=== PATIENT | female | born 2000 | race Caucasian/White ===

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

== ENCOUNTER 2021-07-19 22:16 | Emergency (ER) | payer SELFPAY ==
[2021-07-19 22:23] VITALS: BP 122/75
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
[2021-07-19] MEDS ORDERED: SULF1TAB38 PO (22:40)
== END 2021-07-19 22:50 | disposition home or self-care (01) ==
LOC: EDUNIT# 22:16 → ER 22:19
DX: L73.9 Follicular disorder, unspecified (principal); L01.02 Bockhart's impetigo
CPT/HCPCS: 99282

== ENCOUNTER 2021-09-11 15:48 | Emergency (ER) | payer SELFPAY ==
[~2021-09-11] VITALS: Ht 172.7 cm; Wt 63.5 kg
[~2021-09-11 15:48] MED LIST changes: +SULF1TAB38 PO
[2021-09-11 16:00] VITALS: BP 115/82
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
[2021-09-11] MEDS ORDERED: NAPR-1071 PO (16:14)
[2021-09-11] MEDS ORDERED: METH-732 PO (16:14)
[2021-09-11] MEDS ORDERED: ORPHENADRINE 60 MG/2 ML (NORFLEX) AMP (ED ONLY) IM ONE (16:15)
[2021-09-11] MEDS ORDERED: KETOROLAC 60 MG/2 ML VIAL IM ONE (16:15)
== END 2021-09-11 16:35 | disposition home or self-care (01) ==
LOC: EDUNIT# 15:48 → ER 15:50
DX: M43.6 Torticollis (principal)
CPT/HCPCS: 99284

== ENCOUNTER 2023-07-22 15:15 | Outpatient (CLI) | payer MEDICAID ==
[~2023-07-22 15:15] MED LIST changes: +METH-732 PO; +NAPR-1071 PO
[2023-07-22 15:23] VITALS: BP 105/65
[2023-07-22 15:57] LABS: BILIRUBIN,URINE 1+ (NEGATIVE); CLARITY,URINE CLEAR; COLOR,URINE YELLOW; GLUCOSE, URINE (UA) NEGATIVE (NEGATIVE); KETONES,URINE TRACE (NEGATIVE); NITRITE,URINE NEGATIVE (NEGATIVE); PH,URINE 5.5 (5-9); PROTEIN,URINE 1+ (NEGATIVE)
[2023-07-22 15:58] LABS: BACTERIA,URINE LARGE /HPF; LEUKOCYTE ESTERASE ,URINE NEGATIVE (NEGATIVE); RBC,URINE 0-2 /HPF; SQUAMOUS EPITHELIAL CELL,UR >50 /HPF
--- NOTE | 2023-07-23 08:22 | Physician Query-Final Dx ---
DIVYA,07/23/23 0822: Clinic Account Progress/Dx Physician Query: Please give diagnosis Please include # weeks gestation Date of Service Jul 22, 2023 at 15:15 DANIEL GALAN DO 07/24/23 0838: Clinic Account Progress/Dx DIAGNOSIS: Diagnosis 34 week IUP Irregular contractions DIVYA,NovJul 23, 2023 08:22 DANIEL GALAN DO Jul 24, 2023 08:38
== END 2023-07-22 16:20 | disposition home or self-care (01) ==
LOC: WSo 15:15 → LDRP 15:15 → WSo 16:20
PROVIDERS: ATTEND Obstetrics & Gynecology
DX: O36.8190 Decreased fetal movements, unspecified trimester, not applicable or unspecified (principal); Z3A.00 Weeks of gestation of pregnancy not specified
CPT/HCPCS: 81000; G0463; 99213

== ENCOUNTER → 2023-07-25 | Outpatient (CLI) | payer MEDICAID ==
--- NOTE | 2023-07-25 16:26 | Diagnostic Imaging Report ---
HISTORY: , 33 weeks 5 days COMPARISON: None TECHNIQUE: Transabdominal ultrasound of the gravid uterus. FINDINGS: There is a single live intrauterine gestation in cephalic presentation. The placenta is anterior without findings of previa shown. The amniotic fluid index measures 18.6 cm. heart rate measures 144 BPM. The biophysical profile score is 8 out of 8. IMPRESSION: 1. Single live intrauterine gestation with a biophysical profile score of 8 out of 8. Dictated by: Dictated on workstation # [id number]
== END ==
LOC: RAD 08:28
PROVIDERS: ATTEND Nurse Practitioner Women's Health
DX: Z34.03 Encounter for supervision of normal first pregnancy, third trimester (principal); Z3A.33 33 weeks gestation of pregnancy
CPT/HCPCS: 76819

== ENCOUNTER 2023-09-03 16:47 | Outpatient (CLI) | payer MEDICAID ==
[~2023-09-03] VITALS: Ht 172.7 cm; Wt 84.6 kg
[2023-09-03 16:50] VITALS: BP 129/89
[2023-09-03 17:32] LABS: CLARITY,URINE CLEAR; COLOR,URINE YELLOW
[2023-09-03 17:33] LABS: BACTERIA,URINE MODERATE /HPF; BILIRUBIN,URINE NEGATIVE (NEGATIVE); GLUCOSE, URINE (UA) NEGATIVE (NEGATIVE); KETONES,URINE NEGATIVE (NEGATIVE); LEUKOCYTE ESTERASE ,URINE NEGATIVE (NEGATIVE); NITRITE,URINE NEGATIVE (NEGATIVE); PROTEIN,URINE TRACE (NEGATIVE)
[2023-09-03] MEDS ORDERED: PROCHLORPERAZINE 10 MG TABLET PO NR (18:00)
[2023-09-03 18:15] LABS: BASOPHILS % (AUTO) 0 % (0-10); EOSINOPHILS # (AUTO) 0.1 10^3/uL (0.0-0.3); EOSINOPHILS % (AUTO) 1 % (0-10); HEMATOCRIT 33 % (35-52); HEMOGLOBIN 10.5 g/dL (11.5-16.0); LYMPHOCYTES # (AUTO) 1.6 10^3/uL (1.0-4.0); LYMPHOCYTES % (AUTO) 17 % (12-44); MEAN CORPUSCULAR HEMOGLOBIN 27 pg (25-34); MEAN CORPUSCULAR HGB CONC 32 g/dL (32-36); MEAN CORPUSCULAR VOLUME 83 fL (80-99); MEAN PLATELET VOLUME 11.1 fL (9.0-12.2); MONOCYTES # (AUTO) 1.1 10^3/uL (0.0-1.0); MONOCYTES % (AUTO) 12 % (0-12); NEUTROPHILS # (AUTO) 6.7 10^3/uL (1.8-7.8); NEUTROPHILS % (AUTO) 69 % (42-75); PLATELET COUNT 212 10^3/uL (130-400); WHITE BLOOD COUNT 9.7 10^3/uL (4.3-11.0)
[2023-09-03 18:16] LABS: ALBUMIN 3.4 GM/DL (3.2-4.5)
[2023-09-03 18:18] LABS: CALCIUM 9.3 MG/DL (8.5-10.1)
[2023-09-03 18:21] LABS: BILIRUBIN,TOTAL 0.4 MG/DL (0.1-1.0)
[2023-09-03 18:22] LABS: CREATININE SERUM 0.63 MG/DL (0.60-1.30)
[2023-09-03 18:27] LABS: POTASSIUM 3.9 MMOL/L (3.6-5.0)
[2023-09-03 19:00] VITALS: BP 125/75
--- NOTE | 2023-09-04 07:47 | Physician Query-Final Dx ---
09/04/23 0747: Clinic Account Progress/Dx Physician Query: Please give diagnosis Please include # weeks gestation Date of Service Sep 03, 2023 at 16:47 JOHANNY STEWART DO 09/04/23 1637: Clinic Account Progress/Dx DIAGNOSIS: Diagnosis IUP @39w3d Headaches PIH labs nml Compazine for Headache DC to home Keep next appt Labor precautions. DIVYASep 04, 2023 07:47 JOHANNY STEWART DO Sep 04, 2023 16:37
--- NOTE | 2023-09-04 16:35 | OB Triage Report ---
Standard Progress Note Progress Notes/Assess & Plan Date Seen by a Provider: Sep 03, 2023 Time Seen by a Provider: 18:00 Expected Date of Delivery: Sep 06, 2023 Gestational Age in Weeks: 39 Gestational Age in Days: 3 LMP/AMOS Comment: This 23yo G1 presents @ 39w3d with c/o lightheadedness and dizzy and PHILLIPS She denies LOF VB or CTXS FHR 130s reactive CTX irregular Progress/Assessment & Plan IUP @39w3d Headaches PIH labs nml Compazine for Headache DC to home Keep next appt Labor precautions. JOHANNY STEWART DO Sep 04, 2023 16:35
== END 2023-09-03 19:00 | disposition home or self-care (01) ==
LOC: WSo 16:47 → LDRP 16:49 → WSo 19:00
PROVIDERS: ATTEND Obstetrics & Gynecology
DX: O99.891 Other specified diseases and conditions complicating pregnancy (principal); R51.9 Headache, unspecified; Z3A.39 39 weeks gestation of pregnancy
CPT/HCPCS: 80053; 81000; 85025; G0463; 36415; 99213

== ENCOUNTER 2023-09-07 18:50 | Outpatient (CLI) | payer MEDICAID ==
[~2023-09-07] VITALS: Ht 172 cm; Wt 83.7 kg
[2023-09-07 19:15] VITALS: BP 117/74
[2023-09-07 19:38] LABS: BACTERIA,URINE MODERATE /HPF; BILIRUBIN,URINE NEGATIVE (NEGATIVE); CLARITY,URINE CLEAR; COLOR,URINE YELLOW; GLUCOSE, URINE (UA) 1+ (NEGATIVE); KETONES,URINE NEGATIVE (NEGATIVE); LEUKOCYTE ESTERASE ,URINE NEGATIVE (NEGATIVE); NITRITE,URINE NEGATIVE (NEGATIVE); PROTEIN,URINE NEGATIVE (NEGATIVE)
[2023-09-07] MEDS ORDERED: ACETAMINOPHEN 500 MG TABLET ONE (22:43)
[2023-09-07] MEDS ORDERED: ACETAMINOPHEN 500 MG TABLET PO ONE (22:44)
[2023-09-07] MEDS ORDERED: FERR-84 PO (22:49)
[2023-09-07] MEDS ORDERED: PREN1TAB19 PO (22:49)
[2023-09-07] MEDS ORDERED: ASCO500T71 PO (22:49)
--- NOTE | 2023-09-09 08:08 | Physician Query-Final Dx ---
DIVYA,09/09/23 0808: Clinic Account Progress/Dx Physician Query: Please give diagnosis Please include # weeks gestation Date of Service Sep 07, 2023 at 18:50 MARCO A VILLALOBOS DO 09/09/23 1229: Clinic Account Progress/Dx DIAGNOSIS: Diagnosis IUP at 40 weeks contractions DIVYA,NovSep 09, 2023 08:08 MARCO A VILLALOBOS DO Sep 09, 2023 12:29
== END 2023-09-07 23:00 | disposition home or self-care (01) ==
LOC: LDRP 18:50 → WSo 18:50
PROVIDERS: ATTEND Obstetrics & Gynecology
DX: O47.1 False labor at or after 37 completed weeks of gestation (principal); Z3A.40 40 weeks gestation of pregnancy
CPT/HCPCS: 81000; 87088; 99213

== ENCOUNTER 2023-09-09 19:24 | Outpatient (CLI) | payer MEDICAID ==
[~2023-09-09] VITALS: Ht 172.7 cm; Wt 82.9 kg
[~2023-09-09 19:24] MED LIST changes: +ASCO500T71 PO; +FERR-84 PO; +PREN1TAB19 PO
[2023-09-09 19:43] VITALS: BP 110/73
[2023-09-09 20:00] VITALS: BP 110/73
[2023-09-09 22:00] VITALS: BP 110/73
--- NOTE | 2023-09-10 08:04 | Physician Query-Final Dx ---
DIVYA,09/10/23 0804: Clinic Account Progress/Dx Physician Query: Please give diagnosis Please include # weeks gestation Date of Service Sep 09, 2023 at 19:24 JOHANNY STEWART DO 09/10/23 0908: Clinic Account Progress/Dx DIAGNOSIS: Diagnosis IUP @40w5d False labor DC to home Labor precautions kep next appt. DIVYA,NovSep 10, 2023 08:04 JOHANNY STEWART DO Sep 10, 2023 09:08
--- NOTE | 2023-09-10 09:08 | OB Triage Report ---
Standard Progress Note Progress Notes/Assess & Plan Date Seen by a Provider: Sep 09, 2023 Time Seen by a Provider: 21:45 Expected Date of Delivery: Sep 04, 2023 Gestational Age in Weeks: 40 Gestational Age in Days: 5 LMP/AMOS Comment: This 23yo G1 presents to L&D @40w5d with c/o CTXs denies LOF or VB FHR 140 reactive CVX 4/60/-3 per RN TOCOs Q5-10 with irritability no cervical chage in 2 hrs Progress/Assessment & Plan IUP @40w5d False labor DC to home Labor precautions kep next appt. JOHANNY STEWART DO Sep 10, 2023 09:08
[2023-09-11] MEDS ORDERED: IBUP-844 PO (08:36)
[2023-09-11] MEDS ORDERED: BENZ78AE5 TP (08:36)
[2023-09-11] MEDS ORDERED: ACET-93 PO (08:36)
[2023-09-11] MEDS ORDERED: DOCU100C37 PO (08:36)
[2023-09-11] MEDS ORDERED: DIBU30OI TOP (08:36)
== END 2023-09-09 22:00 | disposition home or self-care (01) ==
LOC: WSo 19:24 → LDRP 19:25 → WSo 22:00
PROVIDERS: ATTEND Obstetrics & Gynecology
DX: O47.1 False labor at or after 37 completed weeks of gestation (principal); Z3A.40 40 weeks gestation of pregnancy
CPT/HCPCS: 99213

== ENCOUNTER 2023-09-10 09:13 | Inpatient (IN) | payer MEDICAID ==
[~2023-09-10] VITALS: Ht 172.7 cm; Wt 83.5 kg
[2023-09-10] VITALS (37 sets, daily range): BP systolic 99–137; BP diastolic 53–80
[2023-09-10] MEDS ORDERED: MINERAL OIL 30 ML UDC TOP PRN (09:30)
[2023-09-10] MEDS ORDERED: LACTATED RINGERS 1,000 ML 500 ML IV PRN (09:30)
[2023-09-10] MEDS ORDERED: D5 LR 1,000 ML IV SOLN 1,000 ML IV SCH (09:30)
[2023-09-10 09:44] LABS: BASOPHILS # (AUTO) 0.1 10^3/uL (0.0-0.1); BASOPHILS % (AUTO) 1 % (0-10); EOSINOPHILS # (AUTO) 0.1 10^3/uL (0.0-0.3); EOSINOPHILS % (AUTO) 1 % (0-10); HEMATOCRIT 34 % (35-52); HEMOGLOBIN 11.1 g/dL (11.5-16.0); LYMPHOCYTES # (AUTO) 2.3 10^3/uL (1.0-4.0); LYMPHOCYTES % (AUTO) 19 % (12-44); MEAN CORPUSCULAR HEMOGLOBIN 26 pg (25-34); MEAN CORPUSCULAR HGB CONC 32 g/dL (32-36); MEAN CORPUSCULAR VOLUME 81 fL (80-99); MEAN PLATELET VOLUME 11.3 fL (9.0-12.2); MONOCYTES # (AUTO) 1.2 10^3/uL (0.0-1.0); MONOCYTES % (AUTO) 10 % (0-12); NEUTROPHILS # (AUTO) 8.5 10^3/uL (1.8-7.8); NEUTROPHILS % (AUTO) 70 % (42-75); PLATELET COUNT 217 10^3/uL (130-400); WHITE BLOOD COUNT 12.1 10^3/uL (4.3-11.0)
[2023-09-10] MEDS ORDERED: fentaNYL 2 mcg/ml BUPIVA 0.125 100 ML ONE (09:48)
[2023-09-10] MEDS ORDERED: LIDOCAINE PF 2% 5 ML VIAL ONE (10:14)
[2023-09-10] MEDS ORDERED: fentaNYL INJECTION 100 MCG/2 ML VIAL ONE (10:14)
[2023-09-10] MEDS ORDERED: ONDANSETRON INJECTION 4 MG/2 ML (SDV) IVP PRN (10:15)
[2023-09-10] MEDS: fentaNYL 2 mcg/ml BUPIVA 0.125 100 ML EPI SCH ×2 (10:23→19:33)
--- NOTE | 2023-09-10 10:27 | History & Physical-OB ---
OB - Chief Complaint & HPI Date/Time Date of Admission: Date of Admission: Sep 10, 2023 at 09:15 Date seen by a Provider: Sep 10, 2023 Time Seen by a Provider: 10:20 Chief Complaint/History OB-Reason for Admission/Chief: Onset of Labor Hx : 1 Expected Date of Delivery: Sep 04, 2023 Gestational Age in Weeks: 40 Gestational Age in Days: 6 Admission Nurse Assessment Rev: Yes History of Labs A pos Antibody neg GC neg GBS neg Allergies and Home Medications Allergies Coded Allergies: latex (Verified Allergy, Intermediate, 03/14/20) nystatin (Verified Allergy, Intermediate, HIVES, 03/14/20) lamotrigine (Verified Adverse Reaction, Unknown, MENTAL CHANGES , 03/14/20) Uncoded Allergies: WELBUTRIN (Adverse Reaction, Intermediate, MENTAL CHANGES , 03/14/20) Patient Home Medication List Home Medication List Reviewed: Yes Ascorbic Acid (Vitamin C) Unknown Strength Tab.chew, Unknown Dose PO DAILY, (Reported) Entered as Reported by: SAURAV AGUILAR on 09/07/232248 Ferrous Sulfate (Iron) Unknown Strength Tablet, Unknown Dose PO DAILY, (Reported) Entered as Reported by: SAURAV AGUILAR on 09/07/232248 Vit/Iron Fumarate/FA ( Vitamins Tablet) 28 Mg Iron-800 Mcg Tablet, 1 EACH PO DAILY, (Reported) Entered as Reported by: SAURAV AGUILAR on 09/07/232248 OB - History Hx of Present Care: Yes Ultrasounds: Normal mid trimester US Obstetrical Complications: None Medical Complications: None Patient Past Medical History nc Social History/Family History 2nd Hand Smoke Exposure: No Immunizations Tetanus Booster (TDap): Less than 5yrs OB - Admission Exam Physical Exam HEENT: NCAT Heart: Rhythm Normal Lungs: Clear Abdomen: Gravid Extremities: Normal Reflexes: Normal Cervical Dilatation: 4cm Effacement: 75% Station: -1 Membranes: Ruptured Amniotic Fluid: Clear Heart Rate: 130's Accelerations: Accelerations Present Decelerations: No Decelerations Short Term Variability: Present Collective Bargaining Specialist Variability: Average (6-25) Contractions on Admission: < 5 Minutes Apart Intensity: Firm Labs Laboratory Tests Test 09/10/23 09:41 Range/Units White Blood Count 12.1 H 4.3-11.0 10^3/uL Red Blood Count 4.23 3.80-5.11 10^6/uL Hemoglobin 11.1 L 11.5-16.0 g/dL Hematocrit 34 L 35-52 % Mean Corpuscular Volume 81 80-99 fL Mean Corpuscular Hemoglobin 26 25-34 pg Mean Corpuscular Hemoglobin Concent 32 32-36 g/dL Red Cell Distribution Width 14.9 H 10.0-14.5 % Platelet Count 217 130-400 10^3/uL Mean Platelet Volume 11.3 9.0-12.2 fL Immature Granulocyte % (Auto) 1 % Neutrophils (%) (Auto) 70 42-75 % Lymphocytes (%) (Auto) 19 12-44 % Monocytes (%) (Auto) 10 0-12 % Eosinophils (%) (Auto) 1 0-10 % Basophils (%) (Auto) 1 0-10 % Neutrophils # (Auto) 8.5 H 1.8-7.8 10^3/uL Lymphocytes # (Auto) 2.3 1.0-4.0 10^3/uL Monocytes # (Auto) 1.2 H 0.0-1.0 10^3/uL Eosinophils # (Auto) 0.1 0.0-0.3 10^3/uL Basophils # (Auto) 0.1 0.0-0.1 10^3/uL Immature Granulocyte # (Auto) 0.1 0.0-0.1 10^3/uL Syphilis Total Antibody Negative Negative OB - Assessment/Plan/Diagnosis Assessment Assessment: active labor Admission Dx 23 yo @ 40.6 weeks Active labor SROM GBS neg Admission Status: Inpatient Order (span 2 midnights) Reason for Inpatient Admission: 40 week Active labor Plan Plan: Expectant Management DANIEL GLAAN DO Sep 10, 2023 10:27
[2023-09-10] MEDS ORDERED: CATHETER FLUSH 10 ML SYR IV SCH ×2 (14:00→22:00)
[2023-09-10] MEDS ORDERED: OXYTOCIN DRIP PRE-MIX 500 ML IV ONE (15:28)
[2023-09-10] MEDS ORDERED: LIDOCAINE 2% w/EPI 1:200,000 20 ML VIAL ONE (15:28)
[2023-09-10] MEDS: OXYTOCIN DRIP PRE-MIX 500 ML IV SCH ×2 (15:40→16:18)
--- NOTE | 2023-09-10 15:54 | OB Labor & Delivery Record ---
L&D History Date of Service Date of Service: Sep 10, 2023 History Expected Date of Delivery: Sep 04, 2023 Gestational Age in Weeks: 40 Hx : 1 Complications Events: Routine care Operative Indications (Cesarea: N/A-Vaginal Delivery Intrapartal Events: None L&D Stage1 Stage One Onset of Labor - Date: Sep 10, 2023 Monitors and Tracing Monitor Mode: External Heart Rate: 150 Monitor Accelerations: Uniform Monitor Decelerations: Variable [employer] Counselor Variability: Average (6-10) Short Term Variability: Present Presentation: Vertex Vital Signs VS - Last 72 Hours, by Label 09/10/23 09/10/23 09/10/23 09/10/23 09:10 09:10 09:11 10:16 Temp 36.6 36.6 36.6 36.5 Pulse 83 89 83 99 Resp 18 18 18 18 B/P (MAP) 119/70 (86) 126/70 (88) Pulse Ox 100 100 100 100 O2 Delivery Room Air Room Air Room Air Room Air 09/10/23 09/10/23 09/10/23 09/10/23 10:19 10:24 10:32 10:35 Pulse 101 89 76 74 B/P (MAP) 122/70 (87) 119/60 (79) 127/60 (82) 122/62 (82) Pulse Ox 99 100 100 99 O2 Delivery Room Air Room Air Room Air Room Air 09/10/23 09/10/23 09/10/23 09/10/23 10:38 10:48 10:50 10:56 Pulse 81 78 78 76 B/P (MAP) 127/64 (85) 114/59 (77) 119/75 (90) 137/61 (86) Pulse Ox 100 99 99 O2 Delivery Room Air Room Air Room Air Room Air 09/10/23 09/10/23 09/10/23 09/10/23 11:02 11:07 11:12 11:17 Pulse 77 75 82 82 B/P (MAP) 115/69 (84) 116/65 (82) 114/66 (82) 131/63 (85) Pulse Ox 99 99 99 99 O2 Delivery Room Air Room Air Room Air Room Air 09/10/23 09/10/23 09/10/23 09/10/23 11:22 11:26 11:32 11:46 Temp 36.8 Pulse 75 79 75 80 Resp 18 B/P (MAP) 117/69 (85) 126/67 (86) 121/67 (85) 101/55 (70) Pulse Ox 99 100 O2 Delivery Room Air Room Air Room Air 09/10/23 09/10/23 09/10/23 09/10/23 11:56 12:11 12:27 12:42 Pulse 72 78 79 79 B/P (MAP) 113/68 (83) 117/75 (89) 116/71 (86) 118/75 (89) 09/10/23 09/10/23 09/10/23 09/10/23 12:57 13:13 13:28 13:43 Pulse 96 84 81 80 B/P (MAP) 137/80 (99) 130/78 (95) 99/56 (70) 134/57 (82) 09/10/23 09/10/23 13:57 14:13 Pulse 82 108 B/P (MAP) 113/53 (73) 116/73 (87) Rupture of Membranes Spontaneous Ruture of Membrane: Yes Amniotic Membrane Rupture Time: 0800 Amniotic Membrane Fluid Desc.: Clear Vaginal Bleeding Description: Normal Show Induction/Anesthesia Epidural Cath Placement - Time: 1023 Progress/Notes Patient admitted in active labor, without any augmentation she progressed to complete and + 2 station with epidural placement L&D Stage2 Stage Two Stage II Date: Sep 10, 2023 Monitors and Tracing Monitor Mode: External Heart Rate: 150 Monitor Accelerations: Uniform Monitor Decelerations: Variable Fpc Variability: Average (6-10) Short Term Variability: Present Position: Right Occiput Anterior Presentation: Vertex Cord Descript/Complications Cord Vessel Description: 3 Vessels Delivery Type Infant Delivery Method: Spontaneous Vaginal Anterior Shoulder: Right Episiotomy/Perineal Laceration Laceraction(s)/Extensions: Yes Episiotomy Description: Perineal Extension/lac, 2nd degree Degree (describe repair) 2nd degree laceration repaired using 3-0 and 2-0 vicyrl suture. Small bilateral periurethrals reapproximated using 3-0 rapide simple interrupted Condition of Infant Delivery 1 minute Comment: 8 5 minute Comment: 9 Notes Live female weight 9lbs 12 oz Condition of Infant Condition of Infant: Living Exam: No Observed Abnormalities Resuscitation Resuscitation: N/A - Spontaneous Resp L&D Stage3 Stage Three Stage III Date: Sep 10, 2023 Pictocin Pitocin Administration Comment: 30 mu wide open after delivery of placenta Placenta Delivery Placenta Delivery: Spontaneous Delivery Summary Summary Estimated blood loss (mL): 350 Attending at delivery: Daniel Galan DO Condition of Delivery Examined: Cervix Examined, Uterus Explored Post Hemorrhage: No Condition of Mother stable Condition of (s) stable DANIEL GALAN DO Sep 10, 2023 15:54
[2023-09-10] MEDS ORDERED: DIBUCAINE 1% OINTMENT 28 GM TUBE TOP PRN (16:00)
[2023-09-10] MEDS ORDERED: NALOXONE 0.4 MG/ML 1 ML VIAL IV PRN ×2 (16:00→17:45)
[2023-09-10] MEDS ORDERED: WITCH HAZEL(TUCKS) 40 EA JAR TOP PRN (16:00)
[2023-09-10] MEDS ORDERED: Tetanus/Diphtheria/Pertussis (Acell) ADULT Vaccine 0.5 ML IM ONE (16:00)
[2023-09-10] MEDS ORDERED: BENZOCAINE/MENTHOL (DERMOPLAST) 56 ML CAN TP PRN (16:00)
[2023-09-10] MEDS ORDERED: MEASLES, MUMPS, RUBELLA VACCINE (MMR) SQ ONE (16:00)
[2023-09-10] MEDS: ACETAMINOPHEN 500 MG TABLET PO SCH ×2 (16:19→22:13)
[2023-09-10] MEDS: IBUPROFEN 600 MG TABLET PO SCH ×2 (16:19→22:12)
[2023-09-10] MEDS ORDERED: LACTATED RINGERS 1,000 ML 1,000 ML IV ONE (17:45)
[2023-09-10] MEDS: DOCUSATE SODIUM 100 MG CAPSULE PO SCH (20:25)
[2023-09-11 00:03] VITALS: BP 129/67
[2023-09-11 03:31] VITALS: BP 99/59
[2023-09-11] MEDS: IBUPROFEN 600 MG TABLET PO SCH ×4 (03:37→20:26)
[2023-09-11] MEDS: ACETAMINOPHEN 500 MG TABLET PO SCH ×4 (03:37→20:26)
[2023-09-11 06:08] LABS: BASOPHILS % (AUTO) 0 % (0-10); EOSINOPHILS # (AUTO) 0.1 10^3/uL (0.0-0.3); EOSINOPHILS % (AUTO) 1 % (0-10); HEMATOCRIT 26 % (35-52); HEMOGLOBIN 8.2 g/dL (11.5-16.0); LYMPHOCYTES # (AUTO) 2.1 10^3/uL (1.0-4.0); LYMPHOCYTES % (AUTO) 20 % (12-44); MEAN CORPUSCULAR HEMOGLOBIN 26 pg (25-34); MEAN CORPUSCULAR HGB CONC 32 g/dL (32-36); MEAN CORPUSCULAR VOLUME 82 fL (80-99); MEAN PLATELET VOLUME 10.8 fL (9.0-12.2); MONOCYTES # (AUTO) 1.2 10^3/uL (0.0-1.0); MONOCYTES % (AUTO) 12 % (0-12); NEUTROPHILS # (AUTO) 7.1 10^3/uL (1.8-7.8); NEUTROPHILS % (AUTO) 67 % (42-75); PLATELET COUNT 175 10^3/uL (130-400); WHITE BLOOD COUNT 10.6 10^3/uL (4.3-11.0)
--- NOTE | 2023-09-11 08:35 | Discharge Inst-Women's Service ---
Discharge Inst-Women's Serv Depart Medication/Instructions New, Converted or Re-Newed RX: Transmitted to Pharmacy Final Diagnosis PPD 1 NVD Problems Reviewed?: Yes Consults/Follow Up Additional Follow Up: Yes Orders/Referrals Dr. Galan in 6 weeks Activity Activity: Activity as Tolerated Driving Instructions: No Driving for 1 Week NO SMOKING: NO SMOKING Nothing Inside Vagina: No Douching, No Schubert, No Tampons Diet Discharge Diet: No Restrictions Symptoms to Report to : Bleeding Excessive, Pain Increased, Fever Over 101 Degrees F, Vaginal Bleeding Increase, Questions/Concerns For Any Problems or Questions: Contact Your Physician DANIEL GALAN DO Sep 11, 2023 08:35
[2023-09-11] MEDS ORDERED: DOCU100C37 PO (08:36)
[2023-09-11] MEDS ORDERED: IBUP-844 PO (08:36)
[2023-09-11] MEDS ORDERED: DIBU30OI TOP (08:36)
[2023-09-11] MEDS ORDERED: ACET-93 PO (08:36)
[2023-09-11] MEDS ORDERED: BENZ78AE5 TP (08:36)
--- NOTE | 2023-09-11 08:37 | Postpartum Progress Note ---
Note Note Day # 1 Subjective: Patient is without complaints. Ambulating, voiding. Tolerating a regular diet without nausea or vomiting. Normal lochia. Pain is well controlled with oral pain medications. Objective: Physical Exam: General - Alert and oriented, no apparent distress Abdomen - Soft, appropriately tender to palpation, non-distended, fundus firm at umbilicus Extremities - no edema, negative Estela's bilaterally Assessment: PPD 1 NVD Acute blood loss anemia Plan: Routine care. Encourage breast feeding. Encourage ambulation. Ferrous sulfate supplementation. Plan for discharge tomorrow Vitals - Labs Vital Signs - I&O Vital Signs Date Time Temp Pulse Resp B/P (MAP) Pulse Ox O2 Delivery O2 Flow Rate FiO2 09/11/23 03:31 36.8 80 16 99/59 (72) 99 Room Air 09/11/23 00:03 36.5 94 18 129/67 (87) 98 Room Air 09/10/23 20:25 37.1 83 18 106/63 (77) 98 Room Air 09/10/23 16:34 90 120/67 (84) 09/10/23 16:03 106 113/55 (74) 09/10/23 15:48 117 112/58 (76) 09/10/23 15:33 125 130/60 (83) 09/10/23 15:18 37.1 91 18 126/73 (90) 09/10/23 14:42 99 100/71 (81) 09/10/23 14:28 113 125/56 (79) 09/10/23 14:13 108 116/73 (87) 09/10/23 13:57 82 113/53 (73) 09/10/23 13:43 80 134/57 (82) 09/10/23 13:28 81 99/56 (70) 09/10/23 13:13 84 130/78 (95) 09/10/23 12:57 96 137/80 (99) 09/10/23 12:42 79 118/75 (89) 09/10/23 12:27 79 116/71 (86) 09/10/23 12:11 78 117/75 (89) 09/10/23 11:56 72 113/68 (83) 09/10/23 11:46 80 101/55 (70) 09/10/23 11:32 36.8 75 18 121/67 (85) 100 Room Air 09/10/23 11:26 79 126/67 (86) Room Air 09/10/23 11:22 75 117/69 (85) 99 Room Air 09/10/23 11:17 82 131/63 (85) 99 Room Air 09/10/23 11:12 82 114/66 (82) 99 Room Air 09/10/23 11:07 75 116/65 (82) 99 Room Air 09/10/23 11:02 77 115/69 (84) 99 Room Air 09/10/23 10:56 76 137/61 (86) Room Air 09/10/23 10:50 78 119/75 (90) 99 Room Air 09/10/23 10:48 78 114/59 (77) 99 Room Air 09/10/23 10:38 81 127/64 (85) 100 Room Air 09/10/23 10:35 74 122/62 (82) 99 Room Air 09/10/23 10:32 76 127/60 (82) 100 Room Air 09/10/23 10:24 89 119/60 (79) 100 Room Air 09/10/23 10:19 101 122/70 (87) 99 Room Air 09/10/23 10:16 36.5 99 18 126/70 (88) 100 Room Air 09/10/23 09:11 36.6 83 18 100 Room Air 09/10/23 09:10 36.6 89 18 100 Room Air 09/10/23 09:10 36.6 83 18 119/70 (86) 100 Room Air I & O 09/11/23 06:59 Intake Total 2774 ml Balance 2774 ml Labs Laboratory Tests 09/10/23 09:41: White Blood Count 12.1H, Red Blood Count 4.23, Hemoglobin 11.1L, Hematocrit 34L, Mean Corpuscular Volume 81, Mean Corpuscular Hemoglobin 26, Mean Corpuscular Hemoglobin Concent 32, Red Cell Distribution Width 14.9H, Platelet Count 217, Mean Platelet Volume 11.3, Immature Granulocyte % (Auto) 1, Neutrophils (%) (Auto) 70, Lymphocytes (%) (Auto) 19, Monocytes (%) (Auto) 10, Eosinophils (%) (Auto) 1, Basophils (%) (Auto) 1, Neutrophils # (Auto) 8.5H, Lymphocytes # (Auto) 2.3, Monocytes # (Auto) 1.2H, Eosinophils # (Auto) 0.1, Basophils # (Auto) 0.1, Immature Granulocyte # (Auto) 0.1, Syphilis Total Antibody Negative 09/11/23 05:50: White Blood Count 10.6, Red Blood Count 3.13L, Hemoglobin 8.2#L, Hematocrit 26L, Mean Corpuscular Volume 82, Mean Corpuscular Hemoglobin 26, Mean Corpuscular Hemoglobin Concent 32, Red Cell Distribution Width 14.9H, Platelet Count 175, Mean Platelet Volume 10.8, Immature Granulocyte % (Auto) 1, Neutrophils (%) (Auto) 67, Lymphocytes (%) (Auto) 20, Monocytes (%) (Auto) 12, Eosinophils (%) (Auto) 1, Basophils (%) (Auto) 0, Neutrophils # (Auto) 7.1, Lymphocytes # (Auto) 2.1, Monocytes # (Auto) 1.2H, Eosinophils # (Auto) 0.1, Basophils # (Auto) 0.0, Immature Granulocyte # (Auto) 0.1 DANIEL GALAN DO Sep 11, 2023 08:37
[2023-09-11 08:55] VITALS: BP 107/57
[2023-09-11] MEDS ORDERED: FERROUS SULFATE 325 MG (IRON) TABLET PO SCH (09:00)
[2023-09-11] MEDS: DOCUSATE SODIUM 100 MG CAPSULE PO SCH ×2 (09:03→20:26)
--- NOTE | 2023-09-11 14:23 | Anesthesia-Regional Post-Op ---
Regional Patient Condition Mental Status: Alert, Oriented x3 Circulation: Same as Pre-Op Headache: Absent Sensation: Full Recovery Motor Block: Absent Post Op Complications Complications None Follow Up Care/Instructions Patient Instructions None needed. Anesthesia/Patient Condition Patient is doing well, no complaints, stable vital signs, no apparent adverse anesthesia problems. No complications reported per nursing. FABI HOLLIS CRNA Sep 11, 2023 14:23
[2023-09-11 15:23] VITALS: BP 113/68
[2023-09-11 20:26] VITALS: BP 117/69
== END 2023-09-11 21:05 | disposition home or self-care (01) | DRG 806 ==
LOC: WSo 09:13 → LDRP 09:13 → WSo 09:14 → LDRP 09:15
PROVIDERS: ADMIT Obstetrics & Gynecology; ATTEND Obstetrics & Gynecology
PROC: 10E0XZZ Delivery of Products of Conception, External Approach (ICD-10-PCS; principal; 2023-09-10)
PROC: 0KQM0ZZ Repair Perineum Muscle, Open Approach (ICD-10-PCS; 2023-09-10)
PROC: 0UQMXZZ Repair Vulva, External Approach (ICD-10-PCS; 2023-09-10)
DX: O48.0 Post-term pregnancy (principal); D62 Acute posthemorrhagic anemia; Z37.0 Single live birth; O70.1 Second degree perineal laceration during delivery; O71.82 Other specified trauma to perineum and vulva; Z3A.40 40 weeks gestation of pregnancy; O90.81 Anemia of the puerperium; Z91.09 Other allergy status, other than to drugs and biological substances
CPT/HCPCS: 36415; 85025; 86780; 86850; 86900; 86901; 99213